=== PATIENT | female | born 1955 | race African-American/Black ===

== ENCOUNTER 2016-12-20 13:59 | Emergency (ER) | payer OTHER ==
[~2016-12-20] VITALS: Ht 170.2 cm; Wt 105.0 kg
[~2016-12-20 13:59] MED LIST: AVELOX400 MG OR; CLONIDINE0.1 MG PO; CLONIDINE0.2 MG OR; HYDROCHLOROT25 MG OR; HYZAAR1 TA1 OR; LORTAB 7.5 OR; MAXZIDE OR; MAXZIDE-2537.5 MG/TA PO; OXYCODONE/ACETA1 TA1 PO; OXYCONTIN10 MG PO; PREMARIN1.25 MG OR; TRAMADOL HCL50 MG PO; TRIAM/HCTZ1 CAP PO; XANAX1 MG OR; [UNRECOGNIZED DRUG - OTHER] PO
[2016-12-20] MEDS ORDERED: IBUPROFEN600 MG PO (14:54)
[2016-12-20] MEDS ORDERED: TRAMADOL HYDROC50 MG PO (15:35)
[2016-12-20 15:49] VITALS: BP 171/59
== END 2016-12-20 15:49 | disposition home or self-care (01) | DRG 552 ==
LOC: ED 13:59
DX: S33.5XXA Sprain of ligaments of lumbar spine, initial encounter (principal); I10 Essential (primary) hypertension; S50.11XA Contusion of right forearm, initial encounter; V49.40XA Driver injured in collision with unspecified motor vehicles in traffic accident, initial encounter

== ENCOUNTER 2018-01-26 13:23 | Emergency (ER) | payer SELFPAY ==
[~2018-01-26] VITALS: Ht 170.2 cm; Wt 100.0 kg
[~2018-01-26 13:23] MED LIST changes: +IBUPROFEN600 MG PO; +TRAMADOL HYDROC50 MG PO
[2018-01-26] MEDS ORDERED: BACTRIM DS1 TAB PO (14:16)
[2018-01-26 14:20] VITALS: BP 153/83
[2018-01-26] MEDS ORDERED: DOXYCYCLINE100 MG PO ×2 (19:07→19:08)
== END 2018-01-26 14:20 | disposition home or self-care (01) | DRG 603 ==
LOC: ED 13:23
DX: L03.116 Cellulitis of left lower limb (principal); I10 Essential (primary) hypertension